=== PATIENT | female | born 1965 | race Caucasian/White ===

== ENCOUNTER → 2018-05-20 | Outpatient (CLI) | payer OTHER, BC ==
[~2018-05-20] MED LIST: B-100 Complex1 EACH PO; CHOL10002 PO; HYDR1TAB94 PO; Hair, Skin & N1 EACH PO; LEVSOD100 PO; SULTRIDS PO; Unithroid100 MCG PO; VITAMIN D35000 UNIT PO; VOL-CARE RX TA1 EACH PO; Vitamin E & D B52 ML TP
[2018-05-20 14:04] LABS: BASOPHILS ABSOLUTE AUTO 0.03 K/mm3 (0.00-0.23); BASOPHILS PERCENT AUTO 0 % (0-2); EOSINOPHILS PERCENT AUTO 2 % (0-6); Hematocrit 41.3 % (33.0-51.0); IMMATURE GRAN ABSOLUTE AUTO 0.02 K/mm3 (0.00-0.10); IMMATURE GRAN PERCENT AUTO 0 % (0-1); LYMPHOCYTES ABSOLUTE AUTO 2.55 K/mm3 (0.84-5.20); LYMPHOCYTES PERCENT AUTO 38 % (21-46); MONOCYTES ABSOLUTE AUTO 0.36 K/mm3 (0.16-1.47); MONOCYTES PERCENT AUTO 5 % (4-13); Mean Corpuscular HGB 30.5 pg (26.0-34.0); Mean Corpuscular HGB Conc 33.9 g/dL (31.5-36.5); Mean Corpuscular Volume 90 fL (80-100); Mean Platelet Volume 9.9 fL (9.1-12.4); NEUTROPHILS ABSOLUTE AUTO 3.64 K/mm3 (1.96-9.15); NEUTROPHILS PERCENT AUTO 54 % (41-73); Platelet Count 279 K/mm3 (150-400); RDW Coefficient Variation 12.9 % (11.7-14.2); RDW Standard Deviation 42.6 fL (35.1-46.3); Red Blood Cell Count 4.59 M/mm3 (3.80-5.20)
[2018-05-20 14:55] LABS: Alanine Aminotransfer (ALT/SGP 55 U/L (12-78); Albumin, Blood 3.6 g/dL (3.4-5.0); Albumin/Globulin Ratio 1.1 (0.8-1.8); Alk Phos 84 U/L (50-136); Anion Gap 8 mmol/L (6-16); Aspartate Aminotrans (AST/SGOT 36 U/L (12-37); Bilirubin, Total 0.6 mg/dL (0.1-1.0); Blood Urea Nitrogen 12 mg/dL (8-24); CHOL/HDL RATIO 2.3; CO2, Blood 26 mmol/L (21-32); Chloride, Blood 106 mmol/L (98-108); Cholesterol 145 mg/dL (50-200); Free Thyroxine 1.24 ng/dL (0.70-1.60); Globulin, Blood 3.4 g/dL (2.2-4.0); Glucose, Blood 95 mg/dL (70-99); HDL Cholesterol 63 mg/dL (>39); LDL/HDL RATIO 1.2; Low Density Lipoprotein Chol 74 mg/dL (0-110); Sodium, Blood 140 mmol/L (136-145); Thyroid Stimulating Hormone 0.192 uIU/mL (0.360-4.800); Triglycerides 39 mg/dL (30-160); Very Low Density Lipoprot Chol 7 mg/dL (6-32)
[2018-05-20 15:28] LABS: Bun/Creatinine Ratio 20.4 (12.0-20.0); Creatinine, Blood 0.59 mg/dL (0.40-1.00); Glomerular Filtration Rate >60 (60-)
== END ==
LOC: LAB 09:31 → LAB SHORT 09:31
PROVIDERS: Hospitalist
DX: Z00.00 Encounter for general adult medical examination without abnormal findings (principal); E03.9 Hypothyroidism, unspecified
CPT/HCPCS: 80053; 80061; 84439; 84443; 85025

== ENCOUNTER → 2019-06-10 | Outpatient (CLI) | payer OTHER, BC ==
[2019-06-10 14:23] LABS: Free Thyroxine 1.38 ng/dL (0.70-1.60); Thyroid Stimulating Hormone 0.069 uIU/mL (0.360-4.800)
== END ==
LOC: LAB SHORT 10:04 → LAB 10:04
PROVIDERS: Hospitalist
DX: E03.9 Hypothyroidism, unspecified (principal)
CPT/HCPCS: 84439; 84443

== ENCOUNTER → 2020-11-11 | Outpatient (CLI) | payer OTHER, BC ==
[2020-11-11 20:17] LABS: Free Thyroxine 1.51 ng/dL (0.70-1.60)
[2020-11-11 20:21] LABS: Thyroid Stimulating Hormone 0.035 uIU/mL (0.360-4.800)
== END ==
LOC: LAB SHORT 13:56 → PLD 13:56
PROVIDERS: Hospitalist
DX: E03.9 Hypothyroidism, unspecified (principal)
CPT/HCPCS: 84439; 84443

== ENCOUNTER → 2022-05-24 | Outpatient (CLI) | payer OTHER, BC ==
[2022-05-24 11:07] LABS: Source, Urine Clean Catch
[2022-05-24 13:01] LABS: Appearance, Urine Clear (Clear); Bilirubin, Urine Neg (Neg); Blood, Urine Neg (Neg); Color, Urine Yellow (P-Yellow); Glucose Qualitative, Urine Neg (Neg); Ketones, Urine Neg (Neg); Leukocyte Esterase, Urine Neg (Neg); Nitrite, Urine Neg (Neg); Protein, Urine Neg (Neg); Urobilinogen, Urine NORM (Normal)
[2022-05-25 16:08] LABS: HPV 16 Negative (Negative); HPV 18 Negative (Negative); HPV OTHER HR TYPES Negative (Negative)
== END | disposition home or self-care (01) ==
LOC: LAB SHORT 11:03
PROVIDERS: Obstetrics & Gynecology
DX: Z01.419 Encounter for gynecological examination (general) (routine) without abnormal findings (principal); R35.0 Frequency of micturition
CPT/HCPCS: 81003; 87624; G0123

== ENCOUNTER → 2022-11-27 | Outpatient (CLI) | payer OTHER, BC ==
[2022-11-27 17:14] LABS: Free Thyroxine 1.76 ng/dL (0.70-1.60); Thyroid Stimulating Hormone 0.033 uIU/mL (0.360-4.800); Triiodothyronine, Free 3.53 pg/mL (2.18-3.98)
== END | disposition home or self-care (01) ==
LOC: LAB SHORT 13:40
PROVIDERS: Hospitalist
DX: E03.9 Hypothyroidism, unspecified (principal)
CPT/HCPCS: 84439; 84443; 84481

== ENCOUNTER → 2023-11-13 | Outpatient (CLI) | payer BC ==
[2023-11-13 19:52] LABS: Free Thyroxine 1.3 ng/dL (0.70-1.60)
[2023-11-13 19:55] LABS: Thyroid Stimulating Hormone 0.094 uIU/mL (0.360-4.800)
== END ==
LOC: LAB SHORT 17:33 → LAB 17:33
PROVIDERS: Hospitalist
DX: E03.9 Hypothyroidism, unspecified (principal)
CPT/HCPCS: 84439; 84443

== ENCOUNTER → 2024-03-19 | Outpatient (CLI) | payer BC ==
[2024-03-19 15:22] LABS: Influenza A, PCR POSITIVE (NEGATIVE); Influenza B, PCR NEGATIVE (NEGATIVE); Resp Syncytial Virus, PCR NEGATIVE (NEGATIVE); SARS-Cov-2 (COVID-19) PCR, MMC NEGATIVE (NEGATIVE)
== END ==
LOC: LAB SHORT 08:40 → LAB 08:40
PROVIDERS: Hospitalist
DX: J40 Bronchitis, not specified as acute or chronic (principal)
CPT/HCPCS: 0241U

== ENCOUNTER 2025-02-13 19:15 | Emergency (ER) | payer BC ==
[~2025-02-13] VITALS: Ht 165.1 cm; Wt 65.8 kg
[2025-02-13 19:45] VITALS: BP 128/92
[2025-02-13] MEDS ORDERED: Diphth,Pertuss(Acell),Tet Vac 0.5 ML VIAL IM ONE (20:50)
== END 2025-02-13 21:27 | disposition home or self-care (01) ==
LOC: ER 19:15
DX: S61.011A Laceration without foreign body of right thumb without damage to nail, initial encounter (principal); W26.9XXA Contact with unspecified sharp object(s), initial encounter; Y92.096 Garden or yard of other non-institutional residence as the place of occurrence of the external cause; Z88.5 Allergy status to narcotic agent; Z88.1 Allergy status to other antibiotic agents; Z79.899 Other long term (current) drug therapy; Z79.890 Hormone replacement therapy
CPT/HCPCS: 12001; 73140; 90471; 90715; 99282-25